=== PATIENT | male | born 1980 | race Caucasian/White ===

== ENCOUNTER 2018-08-10 13:31 | Emergency (ER) | payer SELFPAY ==
[~2018-08-10] VITALS: Ht 180.3 cm; Wt 104.3 kg
[~2018-08-10 13:31] MED LIST: CLIN150C14 PO; CLIN300C8 PO; MUPI15CR TP; SULF1TAB24 PO
[2018-08-10] MEDS ORDERED: HYDROcodone/APAP 5/325MG 1 TAB TABLET PO ONE (14:00)
[2018-08-10 14:05] VITALS: BP 140/77
[2018-08-10] MEDS ORDERED: HYDR-3164 PO (14:06)
[2018-08-10] MEDS ORDERED: IBUP-1007 PO (14:06)
--- NOTE | 2018-08-10 14:06 | PHYS DOC ---
Past Medical History Past Medical History: Other Past Surgical History: No Surgical History Alcohol Use: Sober Drug Use: None Adult General Chief Complaint Chief Complaint: DENTAL PROBLEM HPI HPI Patient is a 37 year old male who presents with dental pain for the last 3 weeks. He went to [facility] use of the filling came out and the nerve is exposed. This was 3 weeks ago. Patient states he took the clindamycin antibiotic and ibuprofen and Tylenol up and helping the pain. He states last 2 days the pain has gotten worse and can eat anything and ibuprofen Tylenol are not working. Afebrile. No facial swelling. Patient states that he called a Dentist that he was referred to to pull the tooth and they cannot get him into September 06. Patient has some I to drive him and I will give him a Yolyn in the ED and pressure for Yolyn and ibuprofen. Review of Systems Review of Systems Constitutional: Denies fever or chills [] Eyes: Denies change in visual acuity, redness, or eye pain [] HENT: Denies nasal congestion or sore throat [] Respiratory: Denies cough or shortness of breath [] Cardiovascular: No additional information not addressed in HPI [] GI: Denies abdominal pain, nausea, vomiting, bloody stools or diarrhea [] : Denies dysuria or hematuria [] Musculoskeletal: Denies back pain or joint pain [] Integument: Denies rash or skin lesions [] Neurologic: Denies headache, focal weakness or sensory changes [] Endocrine: Denies polyuria or polydipsia [] All other systems were reviewed and found to be within normal limits, except as documented in this note. Allergies Allergies Allergies Coded Allergies Type Severity Reaction Last Updated Verified Penicillins Allergy Intermediate rash 04/09/18 Yes Physical Exam Physical Exam Constitutional: Well developed, well nourished, no acute distress, non-toxic appearance. [] HENT: Normocephalic, atraumatic, bilateral external ears normal, oropharynx moist, no oral exudates, nose normal. [] Eyes: PERRLA, EOMI, conjunctiva normal, no discharge. [] Neck: Normal range of motion, no tenderness, supple, no stridor. [] Cardiovascular:Heart rate regular rhythm, no murmur [] Lungs & Thorax: Bilateral breath sounds clear to auscultation [] Abdomen: Bowel sounds normal, soft, no tenderness, no masses, no pulsatile masses. [] Skin: Warm, dry, no erythema, no rash. [] Back: No tenderness, no CVA tenderness. [] Extremities: No tenderness, no cyanosis, no clubbing, ROM intact, no edema. [] Neurologic: Alert and oriented X 3, normal motor function, normal sensory function, no focal deficits noted. [] Psychologic: Affect normal, judgement normal, mood normal. [] EKG EKG [] Radiology/Procedures Radiology/Procedures [] Course & Med Decision Making Course & Med Decision Making Patient has someone to drive him and I will give him a Yolyn in the ED and prescription for Yolyn and ibuprofen. Upon examination the patient has redness to the gum line to the lower left. No facial swelling. Afebrile. Dragon Disclaimer Dragon Disclaimer This electronic medical record was generated, in whole or in part, using a voice recognition dictation system. Departure Departure Impression: Primary Impression: Pain, dental Disposition: HOME, SELF-CARE Condition: STABLE Referrals: NO PCP (PCP) Patient Instructions: Dental Pain Additional Instructions: Keep your dental appointment. Take medications as prescribed. Scripts Ibuprofen (IBUPROFEN) 600 Mg Tablet 600 MG PO PRN Q6HRS PRN for INFLAMMATION, #20 TAB Prov: DORIAN CORTES APRN 08/10/18 Hydrocodone/Apap 5-325 (NORCO 5-325 TABLET) 1 Each Tablet 1 TAB PO PRN Q6HRS PRN for PAIN, #20 TAB 0 Refills Prov: DORIAN CORTES APRN 08/10/18 DORIAN CORTES APRN Aug 10, 2018 14:06
== END 2018-08-10 14:17 | disposition home or self-care (01) ==
LOC: ER 13:31
DX: K08.89 Other specified disorders of teeth and supporting structures (principal); Z88.0 Allergy status to penicillin
CPT/HCPCS: 99283

== ENCOUNTER 2019-11-30 16:19 | Emergency (ER) | payer SELFPAY ==
[~2019-11-30] VITALS: Ht 177.8 cm; Wt 104.9 kg
[~2019-11-30 16:19] MED LIST changes: +HYDR-3164 PO; +IBUP-1007 PO
[2019-11-30 16:36] VITALS: BP 160/69
[2019-11-30] MEDS ORDERED: CLIN300C8 PO (17:13)
[2019-11-30] MEDS ORDERED: OXYC1TAB15 PO (17:13)
--- NOTE | 2019-11-30 17:14 | PHYS DOC ---
Past Medical History Past Medical History: Other Past Surgical History: No Surgical History Smoking Status: Heavy Tobacco Smoker Additional Information: 1 PPD Alcohol Use: Sober Drug Use: None General Adult EDM: Chief Complaint: DENTAL PROBLEM HPI: HPI: Patient is a 38-year-old male with complaint of pain in 1 of his back teeth in the right upper jaw. This been going on for a couple of days. The pain is become intolerable. He denies any difficulty opening his mouth. He is not noticed any facial swelling or redness. He states he has been in contact with the [facility] about getting it pulled but they are not can be able to do it for several days. [] Review of Systems: Review of Systems: Constitutional: Denies fever or chills. [] Eyes: Denies change in visual acuity. [] HENT: Per HPI [] Respiratory: Denies cough or shortness of breath. [] Cardiovascular: Denies chest pain or edema. [] GI: Denies abdominal pain, nausea, vomiting, bloody stools or diarrhea. [] : Denies dysuria. [] Musculoskeletal: Denies back pain or joint pain. [] Integument: Denies rash. [] Neurologic: Denies headache, focal weakness or sensory changes. [] Endocrine: Denies polyuria or polydipsia. [] Lymphatic: Denies swollen glands. [] Psychiatric: Denies depression or anxiety. [] Heart Score: Risk Factors: Risk Factors: DM, Current or recent (<one month) smoker, HTN, HLP, family history of CAD, obesity. Risk Scores: Score 0 - 3: 2.5% MACE over next 6 weeks - Discharge Home Score 4 - 6: 20.3% MACE over next 6 weeks - Admit for Clinical Observation Score 7 - 10: 72.7% MACE over next 6 weeks - Early Invasive Strategies Allergies: Allergies: Allergies Coded Allergies Type Severity Reaction Last Updated Verified Penicillins Allergy Intermediate rash 04/09/18 Yes Physical Exam: PE: Constitutional: Well developed, well nourished, moderate distress, non-toxic appearance. [] HENT: Fracture right upper first molar with surrounding gingival erythema and swelling [] Eyes: PERRLA, EOMI, conjunctiva normal, no discharge. [] Neck: Normal range of motion, no tenderness, supple, no stridor. [] Cardiovascular:Heart rate regular rhythm, no murmur [] Lungs & Thorax: Bilateral breath sounds clear to auscultation [] Abdomen: Bowel sounds normal, soft, no tenderness, no masses, no pulsatile masses. [] Skin: Warm, dry, no erythema, no rash. [] Back: No tenderness, no CVA tenderness. [] Extremities: No tenderness, no cyanosis, no clubbing, ROM intact, no edema. [] Neurologic: Alert and oriented X 3, normal motor function, normal sensory function, no focal deficits noted. [] Psychologic: Anxious [] Current Patient Data: Vital Signs: Vital Signs Date Time Temp Pulse Resp B/P (MAP) Pulse Ox O2 Delivery O2 Flow Rate FiO2 11/30/19 16:36 98.4 77 20 160/69 (99) Room Air 98.4 EKG: EKG: [] Radiology/Procedures: Radiology/Procedures: [] Course & Med Decision Making: Course & Med Decision Making Pertinent Labs and Imaging studies reviewed. (See chart for details) [] Dragon Disclaimer: Dragon Disclaimer: This electronic medical record was generated, in whole or in part, using a voice recognition dictation system. Departure Departure Impression: Primary Impression: Pain, dental Disposition: HOME, SELF-CARE Condition: STABLE Referrals: NO PCP (PCP) Patient Instructions: Dental Abscess Scripts Oxycodone/Apap 5-325 (PERCOCET 5-325 MG TABLET ) 1 Each Tablet 1 TAB PO PRN Q6HRS PRN for PAIN, #20 TAB 0 Refills Prov: MIKE VILLAREAL DO 11/30/19 Clindamycin Hcl (CLINDAMYCIN HCL) 300 Mg Capsule 1 CAP PO TID for Infection, #30 CAP Prov: MIKE VILLAREAL DO 11/30/19 MIKE VILLAREAL DO November 30, 2019 17:13
[2019-11-30] MEDS: oxyCODONE/APAP 5/325 1 TAB TABLET PO ONE (17:18)
[2019-11-30] MEDS: CLINDAMYCIN HCL 150 MG CAPSULE. PO ONE (17:26)
== END 2019-11-30 17:27 | disposition home or self-care (01) ==
LOC: ER 16:19
DX: K08.89 Other specified disorders of teeth and supporting structures (principal); R68.84 Jaw pain; L53.9 Erythematous condition, unspecified; F10.10 Alcohol abuse, uncomplicated; Z88.0 Allergy status to penicillin
CPT/HCPCS: 99283